=== PATIENT | male | born 1955 | race Caucasian/White ===

== ENCOUNTER 2022-03-31 09:21 | Emergency (ER) | payer MEDICARE, OTHER ==
[~2022-03-31] VITALS: Ht 188 cm; Wt 113.6 kg
[2022-03-31 09:45] VITALS: BP 128/87
[2022-03-31] MEDS ORDERED: TETanus/Pertussis (Acell)/Diphther VAC/PF (Tdap-Adult) 0.5ml syringe IMVAC ONE (09:50)
[2022-03-31] MEDS ORDERED: ibuprofen tablet 400 MG TABLET PO ONE (09:50)
[2022-03-31] MEDS ORDERED: LIDOcaine 1% W/epiNEPHrine 1:100,000 20ml vial IJ ONE (09:50)
[2022-03-31] MEDS ORDERED: bacitracin 15gm ointment TP ONE (10:50)
== END 2022-03-31 11:26 | disposition home or self-care (01) ==
LOC: ER 09:22
DX: S61.216A Laceration without foreign body of right little finger without damage to nail, initial encounter (principal); Z20.3 Contact with and (suspected) exposure to rabies; X58.XXXA Exposure to other specified factors, initial encounter; Y93.89 Activity, other specified; Y92.89 Other specified places as the place of occurrence of the external cause; Y99.8 Other external cause status
CPT/HCPCS: 73140; 90471; 90715; 99283; A6222; A6258